=== PATIENT | female | born 1950 | race Caucasian/White ===

== ENCOUNTER 2018-06-03 08:30 | Day surgery (SDC) | payer MEDICARE, BC ==
[2018-06-02 09:23] LABS: HEMATOCRIT 42.5 % (36.0-48.0); HEMOGLOBIN 14.6 g/dL (12-16); MCH 32.4 pg (26.0-34.0); MCHC 34.4 g/dL (31.0-37.0); MCV 94.2 fL (80.0-100.0); MEAN PLATELET VOLUME 10.7 fL (7.4-10.4); RBC 4.51 10x6/uL (4.00-5.40); RDW 12.7 % (11.5-14.5); WBC 7.2 10x3/uL (4.8-10.8)
[~2018-06-03] VITALS: Ht 167.6 cm; Wt 66.7 kg
[~2018-06-03 08:30] MED LIST: CLARITIN 10 MG10 MG PO; COLACE100 MG PO; SYNTHROID50 MCG PO; ZOVIRAX400 MG PO
[2018-06-03] MEDS ORDERED: IBUPROFEN400 MG (09:14)
[2018-06-03 09:39] VITALS: BP 134/69; Ht 167.6 cm; Wt 66.7 kg
--- NOTE | 2018-06-03 15:30 | NUR ---
REC'D FROM RR. FAMILY AT BEDSIDE. REC'D ZOFRAN 4 MG IV FOR NAUSEA IN RR. ICE CHIPS GIVEN TO PT.
--- NOTE | 2018-06-03 16:00 | NUR ---
UP TO BATHROOM. UNABLE TO VOID. COLA AND FL TRAY BROUGHT TO PT.
--- NOTE | 2018-06-03 16:30 | NUR ---
UP TO BATHROOM. UNABLE TO VOID. CONTINUES TO HAVE SOME NAUSEA. FAMILY AT BEDSIDE.
--- NOTE | 2018-06-03 17:15 | NUR ---
UP TO BATHROOM. VOIDED. IV DC'D WITH CATHETER INTACT. NAUSEA WITH MOVEMENT. RELATES WANTS TO GO HOME AND GO TO BED.
--- NOTE | 2018-06-03 17:25 | NUR ---
WRITTEN AND VERBAL DC INST. GIVEN TO PT ALONG WITH RX. VERBALIZED UNDERSTANDING.
--- NOTE | 2018-06-03 17:40 | NUR ---
DC'D HOME WITH FAMILY VIA PRIVATE VEHICLE. TAKEN TO VEHICLE VIA WC. STABLE AT TIME OF DC.
--- NOTE | 2018-06-05 15:33 | OP ---
PATIENT NAME: SHARON PICKERING MEDICAL RECORD: [id number] :48 LOCATION:D.OPS ADMISSION DATE: SURGEON: SUDHAKAR LUCIO MD DATE OF OPERATION: 06/03/2018 PREOPERATIVE DIAGNOSES: 1. Anorectal polyp. 2. Intractably symptomatic hemorrhoids. 3. Third-degree anal prolapse. POSTOPERATIVE DIAGNOSES: 1. Anorectal polyp. 2. Intractably symptomatic hemorrhoids. 3. Third-degree anal prolapse. PROCEDURES: 1. Flexible sigmoidoscopy with identification of the ulcerated area where the anorectal polyp had been removed. 2. Procedure for prolapse and hemorrhoids. 3. Single column hemorrhoidectomy with closure. SURGEON: Sudhakar Lucio MD WELDER/INSTALLER: None. BLOOD LOSS: Less than 25 cc. ANESTHESIA: General. COMPLICATIONS: None. The risks, possible complications, and alternatives to the procedure were explained to the patient. She elected to proceed. My hope was that the polypoid tissue would be included in the PPH donut. Unfortunately, this was not the case. DESCRIPTION OF PROCEDURE: The patient was conveyed to the operating room electively on 06/03/2018. General anesthesia was induced by the anesthesia staff. The patient was placed in the lithotomy position. The buttocks were taped laterally. The anus and perianal areas were sterilely prepped and draped. I inserted a gastroscope through the anus and advanced it to the sigmoid colon. I then slowly withdrew the endoscope. The prep was adequate. A retroflexed view was obtained in the rectum. I identified the scar, which was ulcerated, and performed electrocautery on both sides of the scar in order to better identify it when it is excised through a transanal technique. I then unretroflexed the scope and removed it under direct vision. The PPH dilator and clear retractor were then advanced through the anus. The clear retractor was sutured to the surrounding anoderm with 2-0 silks. A mucosal pursestring suture of 2-0 Prolene was applied 1 cm cephalad to the clear retractor. The PPH stapling device was advanced with the anvil cephalad to the pursestring suture, which was then tightened and tied. Stapling device was engaged. It was held in place for 2 minutes and then fired. The stapling OPERATIVE REPORT [id number] SHARON PICKERING device was then removed. There was an entire donut of rectal mucosal tissue within the stapling device. Bleeding along the anastomotic staple line was controlled with interrupted 3-0 Vicryls. I then removed the clear retractor. U-shaped anal retractors were placed and I was able to visualize the ulcerated area and what appeared to be some residual polypoid tissue at 12 o'clock. I incised the anoderm between the rectum and the anus. I was able to sweep down the internal and external anal sphincters. I then performed an elliptical excision of an external and internal hemorrhoid. A 3-0 Vicryl suture was placed in a [id number] fashion at the apex of this excision and then I ran this in a running locking fashion for the anal mucosa and then out on to the anoderm in a running fashion. I then tied. Gelfoam was applied within the anus and the lower rectum. A combination of sterile preparation and Marcaine was used to infiltrate the perianal tissues. A topical anesthetic cream was applied to the external hemorrhoids. The patient was then extubated and conveyed to the postanesthesia care unit, where she was in stable condition. TRANSINT:[id number] Voice Confirmation ID: [id number] DOCUMENT ID: [id number] SUDHAKAR LUCIO MD at 1533 CC: [id number] DICTATION DATE: 06/04/18 141 HAND ROUNDER: 06/04/181912 [facility] 06/03/18 [facility] [address] [place] [address]
== END 2018-06-03 17:40 | disposition home or self-care (01) ==
LOC: D.OPS 08:30
PROVIDERS: Anesthesiology
DX: K62.0 Anal polyp (principal); K64.2 Third degree hemorrhoids; K64.8 Other hemorrhoids; Z01.812 Encounter for preprocedural laboratory examination

== ENCOUNTER → 2018-09-24 12:13 | Outpatient (CLI) | payer MEDICARE, BC ==
[2018-06-03 09:39] VITALS: BMI 23.7
[~2018-09-24 12:13] MED LIST changes: +IBUPROFEN400 MG
== END | disposition home or self-care (01) ==
LOC: D.LAB 12:13
PROVIDERS: ATTEND Surgery
DX: R19.7 Diarrhea, unspecified (principal)